=== PATIENT | male | born 2005 | race African-American/Black ===

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

== ENCOUNTER 2025-01-28 21:23 | Emergency (ER) | payer SELFPAY ==
[2025-01-28 21:29] VITALS: BP 163/87; PULSE 92; RESP 16; TEMP 37.6; O2SAT 100; BMI 27.3
--- NOTE | 2025-01-28 21:31 | PC.NURSE ---
Pt awake alert and oriented Skin pink warm and dry Resp full and easy
--- OUTSIDE RECORDS SUMMARY | 2025-01-28 21:32 | XMS_ITS | Clinical Summary ---
Author Organization [facility] Address [address] [place] [address] Care Team Providers Care Fitting Room Inspector Name Role Phone Carole Greenwood MD Primary Care Provider [phone] Allergies No known active allergies Medications HYDROcodone-acetam inophen ([place]) 5-325 MG tablet 05/22/2022 Act jossy Active Problems Problem Noted Date Diagnosed Date Frequent headaches 11/12/2020 Acne 01/15/2019 Sports physical 01/02/2018 Immunizations Immunization Administration Dates Next Due DTaP 07/03/2007, 5,2003,10/24,2003 Hep A, Unspecified 08/01/2007,10/13/2006 Hep B, adult 06/22/2004,2003,2003 Hib (PRP-OMP) 06/22/2004,2003,2003 IPV 07/03/2007, 4,2003,08/21 Influenza, injectable, quadr ivalent, preservative free 05/12/2010 Influenza, seasonal, injectable 07/22/2009,06/19 MMR 07/03/2007,11/12/2004 Meningococcal MCV4O 01/23/2020,08/26/2014 Pneumococcal Conjugate PCV 7 11/12/2004, 03/23/2004,2003,08/21 Tdap 08/26/2014 Varicella 08/01/2007,11/12/2004 Family History Medical History Relation Name Comments atrial septal defect Brother Hypertension Other Relation Name Status Comments Brother Other Social History Tobacco Use Types Packs/Day Years Used Date Smoking Tobacco: Never Passive Smoke Exposure: Yes Smokeless Tobacco: Never Tobacco Cessation:Counseling Given: Not Answered Alcohol Use Standard Drinks/Week Comments No 0 (1 standard drink = 0.6 oz pure alcohol) Alcoholic Drinks/day: Never Drank Alcohol PHQ-2 Answer Date Recorded Patient Health Questionnaire-2 Score 0 06/02/2022 Sex and Gender Information Value Date Recorded Sex Assigned at Not on file Legal Sex Male 8:20 PM EDT Gender Identity Not on file Sexual Orientation Not on file Last Filed Vital Signs Vital Sign Reading Time Taken Comments Blood Pressure 139/74 06/02/2022 2:40 PM EDT Pulse 94 06/02/2022 2:40 PM EDT Temperature 36.8 C (98.2 F) 06/02/2022 2:40 PM EDT Respiratory Rate 17 05/26/2022 12:20 PM EDT Oxygen Saturation 97% 06/02/2022 2:40 PM EDT Inhaled Oxygen Concentration - - Weight 74.8 kg (165 lb) 06/02/2022 2:40 PM EDT Height 177.8 cm (5' 10 ) 06/02/2022 2:40 PM EDT Body Mass Index 23.68 06/02/2022 2:40 PM EDT Plan of Treatment Health Maintenance Due Date Last Done Comments Dental X-Ray: Full Mouth 2003 [facility]-HIV Screening 2003 [facility]-Hepatitis C Screening 2003 [facility]-/Child/Adol SDOH Screenings 2003 HPV Vaccines (1 - Male 3-dose series) 2018 [facility]- SDOH Screenings 2021 [facility]-Adult SDOH Screenings 2021 Dental Oral Exam 09/05/2021 03/04/2021 Dental Prophylaxis 09/05/2021 03/04/2021 Dental X-Ray: Bitewings 03/05/2022 03/04/2021 [facility]-Depression Screening 06/02/2023 06/02/2022 [id number] Vaccine ( season) 2024 [facility]-Influenza Vaccine (Season Ended) 2025 05/12/2010, 07/22/2009, 2009 [facility]-DTaP,Tdap,and Td Vaccines (8 - Td or Tdap) 02/25/2032 02/24/2022, 08/26/2014, 07/03/2007, Additional history exists [facility]-Zoster Vaccines (1 of 2) 2053 08/01/2007, 11/12/2004 [facility]-HIB Vaccines Completed 06/22/2004, 07/2004, 2003 [facility]-Hepatitis B Vaccines Completed 004, 2003, 2003 [facility]-Pneumococcal Vaccine: Pediatrics (0 to 5 Years) and At-Risk Patients (6 to 49 Years) Aged Out 11/12/2004, 03/23/2004, 2003, Additional history exists No longer eligible based on patient's age to complete this topic [facility]-IPV Vaccines Completed 07/03/2007, 03/2004, 2003, Additional history exists [facility]-Hepatitis A Vaccines Completed 08/01/2007, 08/2006 [facility]-Varicella Vaccines Completed 08/01/2007, 2004 [facility]-Rotavirus Vaccines Aged Out No lo nger eligible based on patient's age to complete this topic Procedures Procedure Name Priority Date/Time Associated Diagnosis Comments PROPHYLAXIS - ADULT Routine 03/04/2021 1 :45 PM EDT Encounter for dental examination BITEWINGS - 4 RADIOGRAPHIC IMAGES Routine 03/04/2021 1:45 PM EDT Encounter for dental examination COMPREHENSIVE ORAL EVALUATION - NEW OR ESTABLISHED PATIENT Routine 03/04/2021 1:45 PM EDT Encounter for dental examination from Last 3 Months or Most Recently Relevant to Health Maintenance Insurance [facility] MEDICAID DENTAL [employer] MEDICAID [employer] MEDICAID [place] MED[place]ID [place] Care Teams Fitting Room Inspector Relationship Specialty Start Date End Date Carole Greenwood MD [address] [id number] PCP - General Pediatrics 01/12/24
[2025-01-28] MEDS: cephALEXin 500MG CAPSULE 1000 MG PO (21:52)
[2025-01-28] MEDS: DEXAMETHASONE 4MG TABLET 10 MG PO (21:52)
[2025-01-28 21:56] VITALS: BP 160/80; PULSE 90; RESP 16; TEMP 37.6; O2SAT 98
--- NOTE | 2025-01-28 21:56 | ED_ITS ---
Discharge Plan Disposition Patient Disposition: Home, Self-Care Prescriptions Prescriptions: New cephalexin 500 mg capsule 1,000 mg PO BID 10 Days Qty: 40 0RF No Action amoxicillin-pot clavulanate 1 EACH tablet 1 tab PO BID Qty: 14 0RF prednisone 10 MG tablet 10 mg PO BID 5 Days Qty: 10 0RF oseltamivir [Tamiflu] 6 mg/mL suspension for reconstitution 75 mg PO BID 5 Days Qty: 125 0RF rdyvbdyemrnmmjf-ikzypbwpk-NK [Bromfed DM] 2-30-10 mg/5 mL Syrup 10 ml PO Q4H PRN (Reason: Cough) Qty: 240 0RF fluticasone propionate [Flonase Allergy Relief] 50 mcg/actuation spray,suspension 1 spray intranasal DAILY Qty: 16 0RF Rx Instructions: administer into each nostril hydrocodone-acetaminophen 5-325 mg tablet 1 tab PO Q6H PRN (Reason: pain) Qty: 8 0RF Referrals Follow up/Referrals: Provider,Referral, MD [Primary Care Provider, Medical] - See instructions Activity Restrictions/Add. Instructions Additional Instructions/Restrictions: Antibiotics twice daily for 10 days. Call your family doctor to establish care for this visit to the emergency department and schedule follow-up within 48 hours to ensure improvement. If you have any worsening of your condition or any other concerning signs or symptoms, return to the emergency department or your primary care doctor for further evaluation. Clinical Impressions Clinical Impression: Acute streptococcal pharyngitis Print Language Print Language: Serbian Discharge ED Provider: Ever Bhatia General Adult HPI General Chief complaint: PAIN Stated complaint: Sore throat Time Seen by Provider: 01/28/25 21:28 Mode of Arrival: Ambulatory Source of Information: Patient Description of Symptoms (Recalled from ER Triage Doc. by RN): sore throat since yesterday History of Present Illness HPI narrative: Please note that above description of symptoms, in this electronic medical record under categorization of recalled from ER triage doctor by RN are reflective of an initial nursing assessment, however, is not reflective of my full history and physical exam that was personally taken and clarified. Consequentially, this preceding description of symptoms, which may include the patient's categorized chief complaint in the EMR, do not reflect my personal clinical impression, and the ultimate description of history of present illness and patient stated complaints should be deferred to this section of the note. Unless stated otherwise or congruent with this section of the note, additional signs, symptoms, or incongruence should be interpreted as inaccurate with my clinical impression. Related Data Previous Rx's ?Medication ?Instructions ?Recorded amoxicillin 875 mg-potassium 1 tab PO BID #14 tabs clavulanate 125 mg tablet prednisone 10 mg tablet 10 mg PO BID 5 days #10 tabs 03/11/22 hydrocodone 5 mg-acetaminophen 325 1 tab PO Q6H PRN pa in #8 tabs 05/22/22 mg tablet oljhpsqmoxsfjnr-oxxcqhqsodlpyco-RO 10 ml PO Q4H PRN Co ugh #240 mL 07/05/22 2 mg-30 mg-10 mg/5 mL oral syrup (Bromfed DM) fluticasone propionate 50 1 spray intranasal DAILY #16 grams 07/05/22 mcg/actuation nasal spray,suspension (Flonase Allergy Relief) oseltamivir 6 mg/mL oral 75 mg (12.5 mL) PO BID 5 day s #125 07/05/22 suspension (Tamiflu) mL cephalexin 500 mg capsule 1,000 mg (2 x 500 mg) PO BID 10 01/28/25 days #40 caps Allergies Allergy/AdvReac Type Severity Reaction Status Date / Time No Known Allergies Allergy Verified 02/24/22 18:05 [facility] [place] Disclaimer: The information contained in this section may have been updated after the patient was seen, as this information can be updated by other users. Medical History (Updated 01/28/25 @ 21:49 by Ever Bhatia MD) No significant past medical history Social History (Updated 07/05/22 @ 17:06 by Yumiko Flores RN) Smoking Status: Never smoker alcohol intake: never current occupational status: other Travel in the last 8 weeks?: None Have you lived/traveled outside [place] in past 30 days?: No Contact w/someone who lives/traveled outside [place] past 30 days?: No Exposure to someone with infectious disease in past 14 days?: No Do you have a fever (greater than 100.4 F or 38 C)?: No Have you tested positive for COVID-19?: No Exposed to someone with COVID-19 in past 14 days?: No Do you have a sore throat?: No Do you have a cough?: No Do you have any weakness?: No Do you have any diarrhea?: No Are you experiencing any unusual bleeding?: No Do you have any muscle aches/pain?: No Do you have any abdominal pain?: No Are you experiencing loss of taste or smell?: No ROS Obtained: Yes All systems reviewed & no additional complaints except as documented Physical Exam General General appearance: alert Head Head exam: atraumatic and normocephalic Eye Eye exam: Present normal appearance, PERRL and EOMI ENT ENT exam: Present other (Pharyngeal erythema with tonsillitis, kissing tonsils, exudate. Halitosis. No evidence of uvular deviation, palatal swelling, trismus, external neck swelling, submental induration, dental abscess, angioedema, or other abnormal yas pharyngeal findings) Neck Neck exam: Present normal inspection, full ROM, trachea midline and lymphadenopathy Respiratory Respiratory exam: Absent respiratory distress, wheezes, stridor, accessory muscle use or prolonged expiratory phase Cardiovascular Cardiovascular exam: Present other (Pulses equal symmetric in upper and lower extremities) Abdominal Exam Abdominal exam: Present soft; Absent distention, tenderness or pulsatile mass Extremities Exam Extremities exam: Absent edema Neurological Exam Neurological exam: Present alert, oriented X3 and CN II-XII intact; Absent motor sensory deficit Skin Skin exam: Present warm and dry; Absent diaphoresis or erythema Medical Decision Making Medical Records Medical records reviewed: Yes I reviewed the patient's medical records. Screening: Per USPSTF and CDC recommendations, given the prevalence of disease in our region, it is our hospital?s policy to screen for HIV and viral Hepatitis for all patients aged 18 and over and those with ongoing risk factors. James Inquiry Pt receiving controlled substance: No James was queried for this patient: No Vital Signs: 01/28/25 21:29 01/28/25 21:56 Temperature 99.6 F 99.6 F Temperature Source Oral Oral Pulse Rate 90 Pulse Rate [Right Apical] 92 H Respiratory Rate 16 16 Blood Pressure 160/80 H Blood Pressure [Right Arm] 163/87 H Blood Pressure Mean [Right Arm] 112 Blood Pressure Source Automatic Cuff Blood Pressure Source [Right Arm] Automatic Cuff Blood Pressure Position [Right Arm] Sitting 02 Sat by Pulse Oximetry 100 Oxygen Delivery Method Room Air Room Air Orders (Tests/Meds): ED MEDICATIONS Discontinued Medications Generic Name Dose Route Start Last Admin Trade Name Freq PRN Reason Stop Dose Admin Cephalexin HCl 1,000 mg 01/28/25 21:48 01/28/25 21:52 Cephalexin 500mg Capsule PO 01/28/25 21:49 1,000 mg ONCE ONE Administration Dexamethasone 10 mg 01/28/25 21:48 01/28/25 21:52 Dexamethasone 4mg Tablet PO 01/28/25 21:49 10 mg ONCE ONE Administration Medical Decision Narrative: 19-year-old male presenting with pharyngitis. This is been going on for a couple of days, getting worse. Fevers, no cough. States that he is had strep about once every year to every couple of years. Feels just like this. Pain with swallowing, some difficulty with swallowing given the enlarged tonsils. Has never been evaluated for tonsillectomy. Came in for further evaluation. On arrival, very clinically well. Voice is a little muffled, but he is very clinically well and in no acute distress. No stridor, oropharyngeal exam with tonsillitis, exudate, tonsils are nearly kissing. Uvula is within normal limits. Full range of motion of neck. He is nontachycardic and normotensive. Differential includes strep pharyngitis versus viral pharyngitis. Because this is so consistent with strep pharyngitis, I do not feel that a swab is even deep necessary although was considered. Less likely to be retropharyngeal abscess, epiglottitis, or other acute life-threatening entity because patient is still clinically well, tolerating p.o. intake without issue, tolerating secretions, not tripoding, hemodynamically stable and in no distress. Patient to be given first dose of Keflex here, also given Decadron. Antibiotics sent to pharmacy. Streetsweeper Operator disclaimer Much of this encounter note is an electronic document preparation specialist spoken language to printed text. Electronic document preparation specialist of the spoken language may permit errors. Although I have reviewed the note, some errors may still exist. Critical Care Critical Care Time Critical Care Time: No
== END 2025-01-28 21:59 | disposition home or self-care (01) ==
PROVIDERS: Emergency Provider Emergency Medicine
DX: J02.0 Streptococcal pharyngitis (principal)
CPT/HCPCS: 99283; J8540

== ENCOUNTER 2025-07-07 02:39 | Observation (INO) | payer SELFPAY ==
[2025-07-07 02:45] VITALS: BP 150/70; PULSE 108; RESP 18; TEMP 36.6; O2SAT 98; BMI 28.7
--- OUTSIDE RECORDS SUMMARY | 2025-07-07 02:45 | XMS_ITS | Clinical Summary ---
Author Organization [facility] Address [address] [place] [address] Care Team Providers Care Logistics Assistant Name Role Phone Carole Greenwood MD Primary Care Provider [phone] Allergies No known active allergies Medications HYDROcodone-acetam inophen ([place]) 5-325 MG tablet 05/22/2022 Act jossy Active [...] Health Maintenance Due Date Last Done Comments [facility]-Depression Screening 2003 [facility]-/Child/Adol SDOH Screenings 2003 HPV Vaccines (1 - Male 3-dose series) 2018 [facility]- SDOH Screenings 2021 [facility]-Adult SDOH Screenings 2021 [id number] Vaccine (1 - season) 2025 [facility]-Influenza Vaccine (#1) 04/15/202505/12, 07/22/2009, 2009 [facility]-DTaP,Tdap,and Td Vaccines (8 - [...] on patient's age to complete this topic Insurance [employer] [place] [id number] [facility] MEDICAID [facility] MEDICAID [place] Care Teams Logistics Assistant Relationship Specialty Start Date End Date Carole Greenwood MD [address] [id number] PCP - General Pediatrics 01/12/24
[2025-07-07 02:49] VITALS: BP 150/78; PULSE 99; RESP 18; TEMP 36.3; O2SAT 98
--- NOTE | 2025-07-07 03:06 | CT_ITS ---
PROCEDURE INFORMATION: Exam: CT Neck With Contrast Exam date and time: 07/07/2025 3:46 AM Age: 20 years old Clinical indication: Other: Significant tonsillomegaly, left larger than right TECHNIQUE: Imaging protocol: Computed tomography of the neck with contrast. Radiation optimization: All CT scans at this facility use at least one of these dose optimization techniques: automated exposure control; mA and/or kV adjustment per patient size (includes targeted exams where dose is matched to clinical indication); or iterative reconstruction. Contrast material: ISOVUE; Contrast volume: 75 ml; Contrast route: IV; COMPARISON: No relevant prior studies available. FINDINGS: Salivary glands: Normal. Glands are normal in size. Pharynx: There is a 1.9 x 1.8 x 3.0 cm low-attenuation collection to the left of the pharynx consistent with a parapharyngeal abscess. This causes some mild mass effect along the pharynx. The adenoids are prominent bilaterally. Larynx: Unremarkable. Epiglottis is normal. Thyroid: Normal. No enlarged or calcified nodules. Trachea: Visualized trachea is unremarkable. Lungs: Unremarkable as visualized. Lymph nodes: Scattered bilateral cervical lymph nodes are noted. Bones/joints: Unremarkable. No acute fracture. Soft tissues: Unremarkable. No significant soft tissue swelling. IMPRESSION: 3.0 cm long left-sided parapharyngeal abscess. This measures a maximum of 3 cm. Associated prominent adenoids.
--- NOTE | 2025-07-07 03:11 | HMH.EDGENADL ---
Discharge Plan Disposition Patient Disposition: Admitted Condition: Fair Prescriptions Prescriptions: No Action amoxicillin-pot clavulanate 1 EACH tablet 1 tab PO BID Qty: 14 0RF prednisone 10 MG tablet 10 mg PO BID 5 Days Qty: 10 0RF oseltamivir [Tamiflu] 6 mg/mL suspension for reconstitution 75 mg PO BID 5 Days Qty: 125 0RF dskkrqwltoykswf-tbpdqhphw-BH [Bromfed DM] 2-30-10 mg/5 mL Syrup 10 ml PO Q4H PRN (Reason: Cough) Qty: 240 0RF fluticasone propionate [Flonase Allergy Relief] 50 mcg/actuation spray,suspension 1 spray intranasal DAILY Qty: 16 0RF Rx Instructions: administer into each nostril hydrocodone-acetaminophen 5-325 mg tablet 1 tab PO Q6H PRN (Reason: pain) Qty: 8 0RF cephalexin 500 mg capsule 1,000 mg PO BID 10 Days Qty: 40 0RF Referrals Follow up/Referrals: Provider,Referral, MD [Primary Care Provider, Medical] - See instructions Clinical Impressions Clinical Impression: Abscess, peritonsillar, Acute streptococcal pharyngitis Print Language Print Language: Gibralt[place] Discharge ED Provider: Billy Malagon General Adult HPI General Chief complaint: PAIN Stated complaint: Swollen Tonsils Time Seen by Provider: 07/07/25 02:57 Mode of Arrival: Ambulatory Source of Information: Patient Description of Symptoms (Recalled from ER Triage Doc. by RN): Patient states he has had swollen tonsils for 4 days now. States feeling like hes having trouble swolling, however denies a choking sensation. States he can just feel them swollen. Patient states has a history of this happening, and usually gets an antibiotic. History of Present Illness HPI narrative: 20-year-old male with no chronic medical conditions, no daily medications, no known drug allergies presents to the ER for complaint of sore throat and swollen tonsils. He states he has a history of this every year around this time. He states the pain is the same as it always is. He states he has trouble swallowing secondary to pain but does not feel like anything is stuck or has difficulty passing. He has no difficulty breathing. He states his voice is slightly changed but that this happens every year with the same problem. He states he has no fevers, no cough or congestion. No difficulty opening the mouth. He states typically he just gets an antibiotic and gets better. He says last year the right tonsil was swollen slightly more than the left. I reviewed records from January of this year when patient was seen in this ER for the same complaint which states the tonsils were nearly touching but not touching. Presentation is otherwise the same as that visit. Patient was prescribed Keflex after that encounter. Patient states he has been taking Tylenol without improvement. He is still eating and drinking. No headache, dizziness, chest pain, difficulty breathing, vomiting, diarrhea, abdominal pain, or any other complaints or concerns. Related Data Previous Rx's ?Medication ?Instructions ?Recorded amoxicillin 875 mg-potassium 1 tab PO BID #14 tabs 02/24/22 clavulanate 125 mg tablet prednisone 10 mg tablet 10 mg PO BID 5 days #10 tabs 03/11/22 hydrocodone 5 mg-acetaminophen 325 1 tab PO Q6H PRN pain #8 tabs 05/22/22 mg tablet vpijhidmfaxuton-hnaebsccjfuwgfb-TI 10 ml PO Q4H PRN Cough #240 mL 07/05/22 2 mg-30 mg-10 mg/5 mL oral syrup (Bromfed DM) fluticasone propionate 50 1 spray intranasal DAILY #16 grams 07/05/22 mcg/actuation nasal spray,suspension (Flonase Allergy Relief) oseltamivir 6 mg/mL oral 75 mg (12.5 mL) PO BID 5 days #125 07/05/22 suspension (Tamiflu) mL cephalexin 500 mg capsule 1,000 mg (2 x 500 mg) PO BID 10 01/28/25 days #40 caps Allergies Allergy/AdvReac Type Severity Reaction Status Date / Time No Known Allergies Allergy Verified 02/24/22 18:05 [facility] Disclaimer: The information contained in this section may have been updated after the patient was seen, as this information can be updated by other users. Medical History (Updated 07/07/25 @ 05:18 by Billy Malagon MD) No significant past medical history Social History (Updated 07/05/22 @ 17:06 by Yumiko Flores RN) Smoking Status: Never smoker alcohol intake: never current occupational status: other Travel in the last 8 weeks?: None Have you lived/traveled outside US in past 30 days?: No Contact w/someone who lives/traveled outside US past 30 days?: No Exposure to someone with infectious disease in past 14 days?: No Do you have a fever (greater than 100.4 F or 38 C)?: No Have you tested positive for COVID-19?: No Exposed to someone with COVID-19 in past 14 days?: No Do you have a sore throat?: Yes Do you have a cough?: No Do you have any weakness?: No Do you have any diarrhea?: No Are you experiencing any unusual bleeding?: No Do you have any muscle aches/pain?: No Do you have any abdominal pain?: No Are you experiencing loss of taste or smell?: No ROS Obtained: Yes Systems reviewed as appropriate & no additional complaints except as documented Per HPI Physical Exam General General appearance: alert and in no apparent distress Head Head exam: atraumatic and normocephalic Eye Eye exam: Present PERRL and EOMI ENT ENT exam: Present mucous membranes moist and other Expanded ENT Exam Mouth exam: Present tongue normal; Absent drooling or trismus Throat exam: Present tonsillar erythema, tonsillomegaly and L peritonsillar mass; Absent tonsillar exudate or muffled voice (Voice is not muffled but patient and family at bedside states its tone is slightly different than normal) Comment: Significant bilateral tonsillomegaly, tonsils are touching, left tonsil approximately 30% larger than right. Uvula hangs at midline. No trismus. Tolerating secretions, airway patent no stridor, no pain with extension or movement of the neck Neck Neck exam: Present normal inspection and full ROM; Absent tenderness or lymphadenopathy Chest Chest inspection: Present symmetric chest wall rise Respiratory Respiratory exam: Present normal lung sounds bilaterally; Absent respiratory distress, wheezes or stridor Cardiovascular Cardiovascular exam: Present normal rhythm and tachycardia (Mildly, heart rate 108-115 during exam) Abdominal Exam Abdominal exam: Present soft; Absent distention or tenderness Extremities Exam Extremities exam: Present full ROM Neurological Exam Neurological exam: Present alert and oriented X3; Absent motor sensory deficit Psychiatric Psychiatric exam: Present normal affect and normal mood Skin Skin exam: Present warm and dry Medical Decision Making Medical Records Medical records reviewed: Yes I reviewed the patient's medical records. Screening: Per USPSTF and CDC recommendations, given the prevalence of disease in our region, it is our hospital?s policy to screen for HIV and viral Hepatitis for all patients aged 18 and over and those with ongoing risk factors. MR Comment: See HPI James Inquiry Pt receiving controlled substance: No Vital Signs: 07/07/25 02:45 07/07/25 02:49 07/07/25 04:59 Temperature 97.9 F 97.4 F L Temperature Source Oral Oral Pulse Rate 99 H 63 Pulse Rate [Left] 108 H Respiratory Rate 18 18 Blood Pressure 150/78 H 140/82 Blood Pressure [Right Arm] 150/70 H Blood Pressure Mean [Right Arm] 96 02 Sat by Pulse Oximetry 98 98 99 Oxygen Delivery Method Room Air Room Air Room Air Lab Data Lab Results 07/07/25 02:48: Group A Strep Rapid Positive A 07/07/25 03:18: WBC 19.8 H, RBC 5.29, Hgb 15.6, Hct 45.9, MCV 86.8, MCH 29.5, MCHC 34.0, RDW 12.4, Plt Count 425 H, MPV 9.1, Neut % (Auto) 71.1, Lymph % (Auto) 20.6, [place] % (Auto) 5.6, Eos % (Auto) 1.3, Baso % (Auto) 0.6, Neut # (Auto) 14.1 H, Lymph # (Auto) 4.1, [place] # (Auto) 1.1 H, Eos # (Auto) 0.3, Baso # (Auto) 0.1, Sodium 135 L, Potassium 3.9, Chloride 100, Carbon Dioxide 23, Anion Gap 15.9 H, BUN 11, Creatinine 0.80, Estimated Creat Clear 186, Estimated GFR 121, Est GFR ( Amer) 146, Glucose 115 H, Calcium 10.0, Total Bilirubin 0.8, AST 40, ALT 78, Alkaline Phosphatase 129 H, C-Reactive Protein 91.8 H, Total Protein 10.5 H, Albumin 5.1 H, Globulin 5.4 H, Albumin/Globulin Ratio 0.9 L 07/07/25 03:18 07/07/25 03:18 Orders (Tests/Meds): ED MEDICATIONS Generic Name Dose Route Start Last Admin Trade Name Freq PRN Reason Stop Dose Admin Benzocaine/Butamben/Tetracaine HCl 1 gm 07/07/25 04:14 07/07/25 04:22 Tetracaine/Benzocaine/Butamben 56 Gm [place] TP 08/06/25 04:13 1 gm NEEDED PRN Administration procedure Discontinued Medications Generic Name Dose Route Start Last Admin Trade Name Mirella PRN Reason Stop Dose Admin Lactated Ringer's 1,000 mls @ 999 mls/hr 07/07/25 03:06 07/07/25 04:21 Lactated Ringer's 1000 Ml Bag IV 07/07/25 04:06 Infused .Q1H1M ONE Infusion Ampicillin Sodium/Sulbactam 100 mls @ 200 mls/hr 07/07/25 04:02 07/07/25 05:03 Sodium 3 gm/ Sodium Chloride IV 07/07/25 04:03 Infused ONCE ONE Infusion Iopamidol 75 ml 07/07/25 03:52 07/07/25 03:53 Iopamidol-370 (76%);100ml Bottle IV 07/07/25 03:53 75 ml ONCE ONE Administration Ketorolac Tromethamine 30 mg 07/07/25 03:06 07/07/25 03:18 Ketorolac 30mg/Ml Vial IV 07/07/25 03:07 30 mg ONCE ONE Administration Lidocaine/Epinephrine 5 ml 07/07/25 04:13 07/07/25 04:22 Lidocaine 1% W/Epi 1:100,000 20ml Vial IJ 07/07/25 04:14 5 ml ONCE ONE Administration Methylprednisolone Sodium Succinate 125 mg 07/07/25 03:06 07/07/25 03:18 Methylprednisolone Sod Succ 125mg Vial IV 07/07/25 03:07 125 mg ONCE ONE Administration Sodium Chloride 10 ml 07/07/25 03:52 07/07/25 03:53 Sodium Chloride 0.9% 10ml Syr (Rad Only) IV 07/07/25 03:53 10 ml ONCE ONE Administration ORDERS Category Date Time Status CT soft tissue neck w con Stat Cat Scan 07/07/25 03:06 Completed CBC w/Auto Diff [Complete Blood Count Auto Diff] Stat Lab 07/07/25 03:18 Completed CMP [Comprehensive Metabolic Panel] Stat Lab 07/07/25 03:18 Completed CRP [C-Reactive Protein] Stat Lab 07/07/25 03:18 Completed Rapid Strep Scrn Group A [Strep Scrn Group A (Rapid)] Lab 07/07/25 02:48 Completed Stat Blood Culture Stat Micro 07/07/25 04:20 Received Strep Screen Confirmation Stat Micro 07/07/25 02:48 Received Medical Decision Narrative: In summary, this 20-year-old male presents to the emergency department today with sore throat, concern for enlarged tonsils. On initial evaluation patient is mildly tachycardic but otherwise hemodynamically stable, afebrile, GCS 15, exam is notable for significant tonsillomegaly bilaterally without exudate, left tonsil is larger than the right but the uvula hangs at midline, no pain with range of motion of the neck or extension, patient reports the tone of his voice is slightly different but he does not have a hot potato voice or muffled voice. No difficulty swallowing or tolerating secretions, no difficulty breathing. He is not tripoding or drooling. Differential diagnosis includes but is not limited to strep pharyngitis, viral pharyngitis, I do have concern for peritonsillar abscess with the asymmetric enlargement of the tonsils, I do not have concern for retropharyngeal abscess since patient has no pain with range of motion of the neck specifically with extension. Based on these concerns, I ordered strep swab, hematologic and serum labs, CT soft tissue neck. Patient is receiving Toradol, Solu-Medrol, IV fluids initially. Labs personally reviewed demonstrate significant leukocytosis WBC 19.8, no anemia, mild thrombocythemia. CMP with slight anion gap elevation likely related to mildly decreased oral intake secondary to throat pain. CRP significantly elevated at 91.8. Patient is already receiving IV fluids. Group A strep positive. Patient started on Unasyn for high suspicion of peritonsillar abscess in the setting of confirmed strep.. CT soft tissue neck personally interpreted demonstrates large left peritonsillar abscess up to 3 cm in length. Mild mass effect. See radiology read for final interpretation. I discussed needle aspiration and drainage with the patient. He is agreeable. I consented him for this procedure after discussing risks including pain, bleeding, damage to surrounding structures, damage to nerves or blood vessels including possibly the carotid which could to be life-threatening, need for repeat procedure. Benefits including more rapid healing, relief of pain. Consent was provided. Topical Cetacaine sprayed on the back of the throat prior to local infiltration with 1% lidocaine with epinephrine. Needle aspiration performed. See procedure note for details. Patient tolerated procedure well. Approximately 1.5 cc purulent material was aspirated. See procedure note for details. He was monitored after the procedure and continues to be well-appearing. His vitals have improved as well with tachycardia improving, heart rate currently 89. He is smiling and laughing. Well-appearing. While patient tolerated procedure well, he still has enlarged tonsils. He is protecting his airway, no stridor, tolerating secretions, but I recommended admission to the hospital for continued IV antibiotics, steroids, and monitoring until the swelling starts to go down to ensure he continues to have improvement. He is agreeable to this. I explained it is possible that we will not be able to admit him at this facility because we do not have ENT on-call, but that I would reach out to the hospitalist and ask. I called the hospitalist, Ryann, and she reach out to her attending, Dr. Nelson. After discussing this case with her attending, Ryann graciously accepted the patient for admission. He was admitted in stable condition. Procedures Risk/Benefits of Procedure(s) Were Explained: Yes Abscess I/D Site: other (Peritonsillar abscess) Side (if applicable): left Sedation/analgesia: none Local Anesthetic: lidocaine 1% and with epi Amount of anesthesia used (mL): 4 Technique: needle aspiration Amount of fluid expressed (mL): 1.5 Irrigation: No Packing used?: none Complications: other (No complications. Tolerated procedure well) Critical Care Critical Care Time Critical Care Time: No
[2025-07-07] MEDS: METHYLPREDNISOLONE SOD SUCC 125MG VIAL 125 MG IV (03:18)
[2025-07-07] MEDS: KETOROLAC 30MG/ML VIAL 30 MG IV (03:18)
[2025-07-07] MEDS: LACTATED RINGERS 1000ML 1,000 ML 999 ML IV (03:25)
[2025-07-07 03:29] LABS: Hematocrit 45.9 % (42.0-52.0); Hemoglobin 15.6 g/dL (14.1-18.0); Immature Granulocytes % 0.8 %; Mean Corpuscular HGB Conc 34.0 g/dL (31.8-35.4); Mean Corpuscular Hemoglobin 29.5 pg (27.0-31.2); Mean Corpuscular Volume 86.8 fl (80-94); Nucleated Red Blood Cells % 0 %; Platelet Count 425 K/mm3 (142-424); Red Blood Count 5.29 M/mm3 (4.60-6.20); Red Cell Distribution Width-SD 39.7 fL; White Blood Count 19.8 K/mm3 (4.8-10.8)
[2025-07-07 03:39] LABS: Alanine Aminotransferase 78 U/L (12-78); Albumin Level 5.1 g/dl (3.5-5.0); Albumin/Globulin Ratio 0.9 (1.1-1.8); Alkaline Phosphatase 129 U/L (38-126); Anion Gap 15.9 mEq/L (5-15); Aspartate Amino Transferase 40 U/L (17-59); Bilirubin,Total 0.8 mg/dl (0.2-1.3); Blood Urea Nitrogen 11 mg/dl (9-20); Calcium 10.0 mg/dl (8.4-10.2); Carbon Dioxide 23 mmol/L (22.0-30.0); Chloride 100 mmol/L (98-107); Creatinine Clearance Estimated 186 mL/min (50-200); Creatinine,Serum 0.80 mg/dl (0.66-1.25); Estimated Glomerular Filt Rate 121 ml/min (>60); GFR (African American) 146 ML/MIN (>60); Globulin 5.4 g/dL (1.3-3.2); Glucose 115 mg/dl (74-100); Potassium 3.9 mmoL/L (3.5-5.1); Sodium 135 mmol/L (136-145); Total Protein,Serum 10.5 g/dl (6.3-8.2)
[2025-07-07 03:45] LABS: C-Reactive Protein 91.8 mg/L (0-4)
[2025-07-07 03:53] LABS: Strep Scrn Group A (Rapid) Positive (Negative)
[2025-07-07] MEDS: IOPAMIDOL-370 (76%);100ML BOTTLE 75 ML IV (03:53)
[2025-07-07] MEDS: SODIUM CHLORIDE 0.9% 10ML SYR (RAD ONLY) 10 ML IV (03:53)
--- NOTE | 2025-07-07 03:54 | PC.NURSE ---
Spoke to Lab r/t Strep result. Lab reported his Strep test is positive. provider notified at this time.
[2025-07-07] MEDS: AMPICILLIN SODIUM/SULBACTAM 3 GM in 0.9 % SODIUM CHLORIDE 100 ML IV ×2 (04:11→09:09)
--- NOTE | 2025-07-07 04:20 | PC.NURSE ---
consent form signed
[2025-07-07] MEDS: TETRACAINE/BENZOCAINE/BUTAMBEN 56 GM SPRAY TP (04:22)
[2025-07-07] MEDS: LIDOCAINE 1% W/EPI 1:100,000 20ML VIAL 5 ML IJ (04:22)
[2025-07-07 04:59] VITALS: BP 140/82; PULSE 63; O2SAT 99
--- NOTE | 2025-07-07 05:35 | PC.NURSE ---
Report called to Brina Douglas at [facility]
[2025-07-07 05:37] VITALS: BP 133/89; PULSE 93; RESP 18; TEMP 36.9; O2SAT 100
--- NOTE | 2025-07-07 05:42 | PC.NURSE ---
Patient arrived to floor via wheelchair from ED at 05:41.
[2025-07-07 05:51] VITALS: BP 133/77; PULSE 86; RESP 16; TEMP 36.5; O2SAT 96
[2025-07-07 05:53] VITALS: BMI 29.5
--- NOTE | 2025-07-07 06:04 | P.HP_ITS ---
<Statement entered by Ruiz Nelson MD - 07/08/25 11:05> Agree with plan of care as outlined by the ROD GREASER. History of Present Illness *Admission Date: 07/07/25 *Reason for visit:: Sore throat *History of present illness: Patient is a 20-year-old male past medical history of peritonsillar abscess. Patient presents to [facility] due to swollen throat and having trouble swallowing. Reports prior history of similar symptoms typically treated with oral antibiotics. States symptoms typically occur yearly.. Denies breathing difficulty, fever or congestion. Reports difficulty swallowing due to throat pain. Reports tolerate secretions. Noted that he has been taking Tylenol without any significant improvement. He is still able to eat soft foods and drink fluids but reports difficulty due to pain. Airway patent, no stridor or pain with neck movement. CT soft tissue neck obtained with ED workup, revealing large left peritonsillar abscess up to 3 cm in length. ED provider aspirated approximately 1.5 cc purulent material. Received Toradol, Solu- Medrol, IV fluids and IV Unasyn with initial treatment in the emergency department. Patient was noted to tolerate procedure well. Airway patent no stridor after procedure. Patient denies shortness of breath, chest pain, nausea. Initial ED workup included laboratory studies and imaging, WBC 19.8, platelet count 425, sodium 135, alkaline phosphatase 129, CRP 91.8, total protein 10.5, group a strep positive. Imaging study obtained soft tissue neck CT, I personally reviewed, revealing 3.0 cm long left-sided parapharyngeal abscess. This measures a maximum of 3 cm. Associated prominent adenoids. Patient assessed at bedside, no acute distress. Hemodynamically stable. [facility] Disclaimer: The information contained in this section may have been updated after the patient was seen, as this information can be updated by other users. Medical History No significant past medical history Social History Smoking Status: Never smoker alcohol intake: never current occupational status: other Travel in the last 8 weeks?: None Have you lived/traveled outside US in past 30 days?: No Contact w/someone who lives/traveled outside US past 30 days?: No Exposure to someone with infectious disease in past 14 days?: No Do you have a fever (greater than 100.4 F or 38 C)?: No Have you tested positive for COVID-19?: No Exposed to someone with COVID-19 in past 14 days?: No Do you have a sore throat?: Yes Do you have a cough?: No Do you have any weakness?: No Do you have any diarrhea?: No Are you experiencing any unusual bleeding?: No Do you have any muscle aches/pain?: No Do you have any abdominal pain?: No Are you experiencing loss of taste or smell?: No Other Medical History Have you received the Flu Vaccine for this season: No Have you received the Pneumonia Vaccine: No Review of Systems Review of Systems Review of systems:: pertinent systems reviewed and negative unless documented below Constitutional Constitutional: Reports as per HPI Eyes Eyes: Reports as per HPI ENT Ears, Nose, Mouth, and Throat: Reports dysphagia, Reports odynophagia, Reports sore throat and Reports throat swelling *Cardiovascular Cardiovascular: Reports as per HPI *Respiratory Respiratory: Reports as per HPI *Gastrointestinal Gastrointestinal: Reports as per HPI, Reports dysphagia and Reports odynophagia *Genitourinary Genitourinary: Reports as per HPI *Musculoskeletal Musculoskeletal: Reports as per HPI Integumentary/Breasts Skin/Breast: Reports as per HPI *Neurologic Neurologic: Reports as per HPI Psychiatric Psychiatric: Reports as per HPI Endocrine Endocrine: Reports as per HPI Hematologic/Lymphatic Hematologic/Lymphatic: Reports as per HPI Allergic/Immunologic Allergic/Immunologic: Reports as per HPI and Reports throat swelling Meds Home Medications and Allergies New Prescriptions to Start Prescriptions: Allergies Allergy/AdvReac Type Severity Reaction Status Date / Time No Known Allergies Allergy Verified 02/24/22 18:05 Exam Data for Last 24 hours Vital signs and Labs for Last 24 Hours: Temp Pulse Resp BP Pulse Ox O2 Del Method 97.7 F 86 16 133/77 96 Room Air 07/07/25 05:51 07/07/25 05:51 07/07/25 05:51 07/07/25 05:51 07/07/25 05:51 07/07/25 05:51 Laboratory Results - last 24 hr 07/07/25 02:48: Group A Strep Rapid Positive A 07/07/25 03:18: WBC 19.8 H, RBC 5.29, Hgb 15.6, Hct 45.9, MCV 86.8, MCH 29.5, MCHC 34.0, RDW 12.4, Plt Count 425 H, MPV 9.1, Neut % (Auto) 71.1, Lymph % (Auto) 20.6, [place] % (Auto) 5.6, Eos % (Auto) 1.3, Baso % (Auto) 0.6, Neut # (Auto) 14.1 H, Lymph # (Auto) 4.1, [place] # (Auto) 1.1 H, Eos # (Auto) 0.3, Baso # (Auto) 0.1, Sodium 135 L, Potassium 3.9, Chloride 100, Carbon Dioxide 23, Anion Gap 15.9 H, BUN 11, Creatinine 0.80, Estimated Creat Clear 186, Estimated GFR 121, Est GFR ( Amer) 146, Glucose 115 H, Calcium 10.0, Total Bilirubin 0.8, AST 40, ALT 78, Alkaline Phosphatase 129 H, C-Reactive Protein 91.8 H, Total Protein 10.5 H, Albumin 5.1 H, Globulin 5.4 H, Albumin/Globulin Ratio 0.9 L I & O for Last 24 hours: Intake & Output 07/04/25 07/05/25 07/06/25 07/07/25 23:59 23:59 23:59 23:59 Intake Total 1100 / 1100 Balance 1100 / 1100 Weight 93.531 kg Constitutional Constitutional: no acute distress *Routine HEENT Exam Head: Present normocephalic and atraumatic Eye: Present EOMI, PERRL and normal accommodation ENT: Present mucous membranes moist *Routine Neck Exam Neck: Present supple and full ROM *Routine Respiratory Exam Respiratory: Present normal respiratory effort *Routine Cardiovascular Exam Cardiovascular: Present RRR, Normal S1 and Normal S2 *Routine Abdominal Exam Abdominal: Present soft and normoactive bowel sounds *Routine Rectal Exam Rectal:: deferred *Routine Genitalia Exam Genitalia:: deferred *Routine Extremities Exam Extremities: Present full ROM, pulses intact and normal capillary refill Routine Back/Spine/Pelvis Exam Back/Spine: Present full ROM *Routine Skin Exam Skin: Present intact *Routine Neurological Exam Neurological: Present alert, oriented X3 and CN II-XII intact Routine Psychiatric Exam Psychiatric: Present normal affect Assessment and Plan *Assessment and plan (1) Abscess, peritonsillar: Status: Acute Category: Medical Code(s): J36 - Peritonsillar abscess (2) Acute streptococcal pharyngitis: Status: Acute Category: Medical Code(s): J02.0 - Streptococcal pharyngitis (3) Leucocytosis: Status: Acute Category: Medical Code(s): D72.829 - Elevated white blood cell count, unspecified Plan 1. Abscess, peritonsillar/acute streptococcal pharyngitis: Patient with history of recurrent peritonsillar abscess-> presenting with difficulty swallowing due to pain, swollen throat. WBC 19, afebrile. CT imaging as noted above with 3.0 cm long left sided parapharyngeal abscess. ED provider aspirated approximately 1.5 cc purulent fluid. Patient is without stridor, airway is patent, tolerating secretions. Received Solu-Medrol IV 125 mg, IV Unasyn, IV Toradol and IV fluid. Resume IV antibiotic therapy along with IV fluids and IV Toradol for pain. Continue to monitor airway oxygen status. Currently without distress adequate respiratory status saturations. Clear liquid diet- advance as tolerated. Follow labs. 2. DVT prophylaxis: Lovenox Full code/clear liquid diet 20-year-old male presents with sore throat and difficulty swallowing. Found to have peritonsillar abscess. History of prior episodes. CT imaging revealing 3.0 cm pharyngeal abscess in which this was aspirated in the emergency department. Agreed to admit for further observation and IV antibiotic management along with IV fluids and anti-inflammatory. Lab monitoring.
[2025-07-07] MEDS: LACTATED RINGERS 1000ML 1,000 ML 100 ML IV (06:05)
[2025-07-07 06:56] LABS: Hematocrit 41.3 % (42.0-52.0); Immature Granulocytes % 0.9 %; Mean Corpuscular HGB Conc 33.7 g/dL (31.8-35.4); Mean Corpuscular Hemoglobin 29.6 pg (27.0-31.2); Mean Corpuscular Volume 87.9 fl (80-94); Nucleated Red Blood Cells % 0 %; Platelet Count 371 K/mm3 (142-424); Red Blood Count 4.70 M/mm3 (4.60-6.20); Red Cell Distribution Width-SD 39.8 fL; White Blood Count 17.5 K/mm3 (4.8-10.8)
[2025-07-07 07:10] LABS: Anion Gap 12.1 mEq/L (5-15); Blood Urea Nitrogen 10 mg/dl (9-20); Calcium 9.6 mg/dl (8.4-10.2); Carbon Dioxide 25 mmol/L (22.0-30.0); Chloride 101 mmol/L (98-107); Creatinine Clearance Estimated 192 mL/min (50-200); Creatinine,Serum 0.80 mg/dl (0.66-1.25); Estimated Glomerular Filt Rate 121 ml/min (>60); GFR (African American) 146 ML/MIN (>60); Glucose 127 mg/dl (74-100); Potassium 4.1 mmoL/L (3.5-5.1); Sodium 134 mmol/L (136-145)
[2025-07-07 07:41] LABS: Hemoglobin 13.9 g/dL (14.1-18.0)
[2025-07-07 08:00] VITALS: BP 134/70; PULSE 88; RESP 16; TEMP 36.9; O2SAT 97
--- NOTE | 2025-07-07 11:33 | HMH.PHAAMS2 ---
- Antimicrobial Stewardship Review culture & sensitivity review Stewardship interventions: culture & sensitivity review Comments: BLOOD CX PENDING, TREATING PERITONSILLAR ABSCESS EMPIRICIALLY WITH UNASYN.
--- NOTE | 2025-07-07 13:14 | P.DS_ITS ---
General Admission date:: 07/07/25 HPI HPI HPI: Patient is a 20-year-old male past medical history of peritonsillar abscess. Patient presents to [facility] due to swollen throat and having trouble swallowing. Reports prior history of similar symptoms typically treated with oral antibiotics. States symptoms typically occur yearly.. Denies breathing difficulty, fever or congestion. Reports difficulty swallowing due to throat pain. Reports tolerate secretions. Noted that he has been taking Tylenol without any significant improvement. He is still able to eat soft foods and drink fluids but reports difficulty due to pain. Airway patent, no stridor or pain with neck movement. CT soft tissue neck obtained with ED workup, revealing large left peritonsillar abscess up to 3 cm in length. ED provider aspirated approximately 1.5 cc purulent material. Received Toradol, Solu- Medrol, IV fluids and IV Unasyn with initial treatment in the emergency department. Patient was noted to tolerate procedure well. Airway patent no stridor after procedure. Patient denies shortness of breath, chest pain, nausea. Initial ED workup included laboratory studies and imaging, WBC 19.8, platelet count 425, sodium 135, alkaline phosphatase 129, CRP 91.8, total protein 10.5, group a strep positive. Imaging study obtained soft tissue neck CT, I personally reviewed, revealing 3.0 cm long left-sided parapharyngeal abscess. This measures a maximum of 3 cm. Associated prominent adenoids. Patient assessed at bedside, no acute distress. Hemodynamically stable. Hospital Course Hospital Course Hospital Course: Los Sánchez is a 20-year-old male with a medical history significant for recurrent tonsillitis presented with throat pain and difficulty eating and was admitted for tonsillar abscess. #Sepsis, resolved #Strep throat #Tonsillitis #Tonsillar abscess ? Patient presented worsening throat pain and difficulty eating. History of recurrent tonsillitis medically managed with antibiotics. ? Positive for group A strep pyogenes. Initial WBC 19.8, improved on day of discharge. Tachycardia also resolved. ? CT soft tissue neck revealed left sided parapharyngeal abscess measuring 3.0 cm. 2 cc worse drain in the ED. ? Clinically improved with IV Unasyn, feeling much better. No longer having significant throat pain, tolerating diet without issues. ? Patient is interested in tonsillectomy, will refer to ENT for further evaluation management. ? Discharged with Augmentin 500 mg 3 times daily for 9 more days. Exam Data for Last 24 hours Vital signs and Labs for Last 24 Hours: Temp Pulse Resp BP Pulse Ox O2 Del Method 98.4 F 88 16 134/70 97 Room Air 07/07/25 08:00 07/07/25 08:00 07/07/25 08:00 07/07/25 08:00 07/07/25 08:00 07/07/25 11:00 Laboratory Results - last 24 hr 07/07/25 02:48: Group A Strep Rapid Positive A 07/07/25 03:18: WBC 19.8 H, RBC 5.29, Hgb 15.6, Hct 45.9, MCV 86.8, MCH 29.5, MCHC 34.0, RDW 12.4, Plt Count 425 H, MPV 9.1, Neut % (Auto) 71.1, Lymph % (Auto ) 20.6, Lares % (Auto) 5.6, Eos % (Auto) 1.3, Baso % (Auto) 0.6, Neut # (Auto) 14.1 H, Lymph # (Auto) 4.1, Lares # (Auto) 1.1 H, Eos # (Auto) 0.3, Baso # (Auto) 0.1, Sodium 135 L, Potassium 3.9, Chloride 100, Carbon Dioxide 23, Anion Gap 15.9 H, BUN 11, Creatinine 0.80, Estimated Creat Clear 186, Estimated GFR 121, Est GFR ( Amer) 146, Glucose 115 H, Calcium 10.0, Total Bilirubin 0.8, AST 40, ALT 78, Alkaline Phosphatase 129 H, C-Reactive Protein 91.8 H, Total Protein 10.5 H, Albumin 5.1 H, Globulin 5.4 H, Albumin/Globulin Ratio 0.9 L 07/07/25 06:28: WBC 17.5 H, RBC 4.70, Hgb 13.9 L D, Hct 41.3 L, MCV 87.9, MCH 29.6, MCHC 33.7, RDW 12.4, Plt Count 371, MPV 9.3, Neut % (Auto) 86.5 H, Lymph % (Auto) 10.5, Lares % (Auto) 1.4 L, Eos % (Auto) 0.3, Baso % (Auto) 0.4, Neut # (Auto) 15.1 H, Lymph # (Auto) 1.8, Lares # (Auto) 0.3, Eos # (Auto) 0.1, Baso # (Auto) 0.1, Sodium 134 L, Potassium 4.1, Chloride 101, Carbon Dioxide 25, Anion Gap 12.1, BUN 10, Creatinine 0.80, Estimated Creat Clear 192, Estimated GFR 121, Est GFR ( Amer) 146, Glucose 127 H, Calcium 9.6 I & O for Last 24 hours: Intake & Output 07/04/25 07/05/25 07/06/25 07/07/25 23:59 23:59 23:59 23:59 Intake Total 2280 / 2280 Output Total Balance 2279 / 2279 Weight 93.531 kg Constitutional Constitutional: no acute distress *Routine HEENT Exam Head: Present normocephalic Eye: Present EOMI and PERRL ENT: Present mucous membranes moist Comments: Prominent swollen, especially left-sided, tonsils without definitive exudate. *Routine Neck Exam Neck: Present supple; Absent lymphadenopathy *Routine Respiratory Exam Respiratory: Present CTA bilaterally *Routine Cardiovascular Exam Cardiovascular: Present RRR *Routine Abdominal Exam Abdominal: Present soft and normoactive bowel sounds; Absent tenderness *Routine Extremities Exam Extremities: Absent cyanosis, clubbing or edema *Routine Skin Exam Skin: Present warm; Absent rash *Routine Neurological Exam Neurological: Present alert and oriented X3 Results Data Completed and Pending Labs on day of discharge: Labs from last 24 hours 07/07/25 07/07/25 07/07/25 06:28 03:18 02:48 WBC 17.5 H 19.8 H RBC 4.70 5.29 Hgb 13.9 L D 15.6 Hct 41.3 L 45.9 MCV 87.9 86.8 MCH 29.6 29.5 MCHC 33.7 34.0 RDW 12.4 12.4 Plt Count 371 425 H MPV 9.3 9.1 Neut % (Auto) 86.5 H 71.1 Lymph % (Auto) 10.5 20.6 Lares % (Auto) 1.4 L 5.6 Eos % (Auto) 0.3 1.3 Baso % (Auto) 0.4 0.6 Neut # (Auto) 15.1 H 14.1 H Lymph # (Auto) 1.8 4.1 Lares # (Auto) 0.3 1.1 H Eos # (Auto) 0.1 0.3 Baso # (Auto) 0.1 0.1 Sodium 134 L 135 L Potassium 4.1 3.9 Chloride 101 100 Carbon Dioxide 25 23 Anion Gap 12.1 15.9 H BUN 10 11 Creatinine 0.80 0.80 Estimated Creat Clear 192 186 Estimated GFR 121 121 Est GFR ( Amer) 146 146 Glucose 127 H 115 H Calcium 9.6 10.0 Total Bilirubin 0.8 AST 40 ALT 78 Alkaline Phosphatase 129 H C-Reactive Protein 91.8 H Total Protein 10.5 H Albumin 5.1 H Globulin 5.4 H Albumin/Globulin Ratio 0.9 L Group A Strep Rapid Positive A DS: Diagnosis Discharge Diagnosis (1) Abscess, peritonsillar: Status: Acute Code(s): J36 - Peritonsillar abscess (2) Acute streptococcal pharyngitis: Status: Acute Code(s): J02.0 - Streptococcal pharyngitis (3) Leucocytosis: Status: Acute Code(s): D72.829 - Elevated white blood cell count, unspecified Meds Home Medications and Allergies Home Medications ?Medication ?Instructions ?Recorded ?Confirmed ?Type amoxicillin 500 mg-potassium 1 tab PO TID 9 days #27 t abs 07/07/25 Rx clavulanate 125 mg tablet (Augmentin) New Prescriptions to Start Prescriptions: amoxicillin-pot clavulanate [Augmentin] Ruiz Nelson Allergies Allergy/AdvReac Type Severity Reaction Status Date / Time No Known Allergies Allergy Verified 02/24/22 18:05 Discharge Plan Disposition Patient Disposition: Home, Self-Care Condition: Fair Follow up Plan Follow up with: Camille Campbell APRN [Nurse Practitioner, Ear, Nose, Throat] - 1 week Referral Note: please call for appointment Prescriptions/Medication Reconciliation: New amoxicillin-pot clavulanate [Augmentin] 500-125 mg tablet 1 tab PO TID 9 Days Qty: 27 0RF Problem Reconciliation Problems Reviewed?: Yes Patient Discharge Instructions Patient Instructions: Sore Throat, DI for Strep Throat Print Language: Lao Providers Primary Care Provider: Provider,Referral Admit Provider: Ruiz Nelson Attending Provider: Ruiz Nelson
== END 2025-07-07 14:02 | disposition home or self-care (01) ==
LOC: ER 05:18 → 2ND 05:29
PROVIDERS: Nurse Practitioner Acute Care; Admitting Provider Student in an Organized Health Care Education/Training Program; Emergency Provider Emergency Medicine; Visit Provider Student in an Organized Health Care Education/Training Program
DX: J36 Peritonsillar abscess (principal); Z86.19 Personal history of other infectious and parasitic diseases; D72.829 Elevated white blood cell count, unspecified
CPT/HCPCS: 42700; 36415; 70491; 80048; 80053; 85025; 86140; 87040; 87430; 96361; 96365; 96366; 96372; 96375; 99285; G0378; J0295; J1650; J1885; J2004; J2919; J7120; Q9967